=== PATIENT | male | born 1990 | race Two or more races ===

== ENCOUNTER 2020-01-11 02:18 | Emergency (ER) | payer SELFPAY ==
[~2020-01-11] VITALS: Ht 175.3 cm; Wt 79.5 kg
[~2020-01-11 02:18] MED LIST: IBUP1CAP3 PO; [UNRECOGNIZED DRUG - CODE] PO
[2020-01-11] MEDS ORDERED: LIDOCAINE 1%/EPI 1:200,000/PF 10 ML VIAL INJ ONE (04:45)
[2020-01-11] MEDS ORDERED: PERTUSS(ACELL),DIPH,TET VAC/PF 0.5 ML VIAL IM ONE (04:45)
[2020-01-11 05:06] VITALS: BP 118/67
== END 2020-01-11 05:39 | disposition home or self-care (01) ==
LOC: EMS 02:18
DX: S01.521A Laceration with foreign body of lip, initial encounter (principal); W22.8XXA Striking against or struck by other objects, initial encounter; Y93.89 Activity, other specified; Y92.89 Other specified places as the place of occurrence of the external cause; Y99.8 Other external cause status
CPT/HCPCS: 12051; 90471; 90715; 99284; J3490